=== PATIENT | female | born 1935 | race Caucasian/White ===

== ENCOUNTER 2019-06-19 08:01 | Day surgery (SDC) | payer OTHER ==
[~2019-06-19] VITALS: Ht 154.9 cm; Wt 99.8 kg
--- NOTE | ~2019-06-19 | O ---
[facility] [place] [address] OPERATIVE REPORT Name: NORY JULIEN Room #: 150-6 [facility]..#: [id number] Admission: 06/19/19 Attend Phys: Mike Langley MD Discharge: Date of : 35 Report #: [id number] THIS REPORT FOR: //name// CC: Dr. Lucas Langley DATE OF SERVICE: 06/19/2019 PREOPERATIVE DIAGNOSIS: Tumor of right lower lid, medial canthus and glabella. POSTOPERATIVE DIAGNOSES: Tumor of right lower lid, medial canthus and glabella; basal cell carcinoma with additional pathology. SURGEON: Mike Langley MD. LEAD BASED PAINT TECHNICIAN: None. ANESTHESIA: MAC. COMPLICATIONS: None. INDICATIONS FOR SURGERY: This pleasant 83-year-old woman has a nodular ulcerative lesion in her medial right lower lid extending across her medial canthus and upon to her glabella. The lesion appears to most likely be a basal cell carcinoma. She presents today for excision of this lesion with subsequent repair of that defect after frozen sections have been analyzed. Informed consent was obtained to include but not limited to the potential risk for loss of vision, bleeding, infection, failure to improve the problem, the potential need for further surgery or treatment. DESCRIPTION OF PROCEDURE: The patient was taken to the operating room where 2% Xylocaine with epinephrine mixed with equal parts 0.75% Marcaine with Wydase was administered transcutaneously to the right lower lid, the right medial canthus, the glabella, the medial right upper lid and the right cheek. The patient was subsequently prepped and draped in the usual sterile fashion. A fine tip skin marking pen was then utilized to outline the lesion with approximately 2 mm of margin around all obvious tumor. The incisions were then made with a 15C blade. Relatively brisk bleeding ensued as the lesion was directly overlying the angular artery. The specimen was then oriented on a drawing for the waiting pathologist. As the specimen was taken, the bed tends to open up from cicatrization from the lesion itself. The pathologist snap froze that tissue and found that there was indeed a basal cell carcinoma in the middle of the specimen that appeared to be completely excised, but the periphery of the margin including all the skin and the deep bed was involved with some other squamous [address] [address] OPERATIVE REPORT Name: NORY JULIEN Lisset Room #: 150-6 [facility]..#: [id number] Admission: 06/19/19 Attend Phys: Mike Langley MD Discharge: Date of : 35 Report #: [id number] proliferative process. She was unsure if the process was neoplastic or inflammatory. The decision was made to correct that defect and allow her to look at the tissue under permanent sections. A myocutaneous flap was then developed to correct the superior most portion of the wound. The defect was larger than it initially been anticipated. Hemostasis was re-achieved. The relaxing incision was then advanced and closed as the flap came together over the glabella, interrupted buried Vicryl sutures deep and then 6-0 plain gut sutures superficially. This left the defect over the medial aspect of the right lower lid. It was elected to do a full thickness skin graft for this part of the correction. A fine tip skin marking pen was then utilized to outline the defect in the lateral right upper lid, which was a little over 2 cm in length and a little over 1 cm in height. The incisions were then made in the periphery of this donor area followed by deeper dissection was accomplished with a high-temp cautery. The donor bed was then closed with interrupted buried 6-0 Vicryl sutures and 6-0 plain gut sutures. The full thickness skin graft was then defatted. It was then secured to its bed in the medial aspect of the right lower lid with 7-0 Vicryl sutures for the cardinal closure and then 6-0 plain gut sutures for a final closure. The wound was then cleaned and dressed with erythromycin ophthalmic ointment followed by several layers of Telfa pads, which were held in place with eye pads, silk tape, and Mastisol. The patient was subsequently transported to the recovery area having tolerated the procedure well with no anesthetic or operative complications being noted and the known possibility of potential need for further treatment. Thank you very much. Supportive dictations follow. By: [id number] Mike Langley MD /nt
[~2019-06-19 08:01] MED LIST: ACULAR 0.5% EYE5 ML OPHTHALMIC; ALEVE220 MG PO; AMLODIPINE BESY10 MG PO; CALCIUM MAGNES1 EACH PO; CALCIUM OYS SH1 EACH PO; CENTRUM SILVER1 EAC4 PO; CLINDAMYCIN HC150 MG PO; FISH OIL 1,001000 M2 PO; GLUCOSAMINE HC500 MG PO; PRAVACHOL40 MG PO; PREMARIN0.625 MG PO; PREMPHASE 0.621 EAC1 PO; PROAIR DIGIHAL90 MCG INH; TIMOLOL GL0.5 %/5 M1 OP; TIMOLOL MALEATE5 M2 OPHTHALMIC; TRUSOPT OCUMETE10 ML OPHTHALMIC; TUMS PO; XALATAN2.5 ML OPHTHALMIC; ZESTORETIC 20-1 EACH PO; ZETIA10 MG PO
[2019-06-19 08:48] VITALS: BP 139/68
--- NOTE | 2019-06-23 17:06 | PATH ---
[facility] [place] [address] PATHOLOGY RPT PROCEDURE Name: NORY JULIEN Room #: DEP [facility] M.R.#: [id number] Admission: 06/19/19 Date of : 35 Discharge: 06/19/19 Report #: [id number] Path Case #: [id number] [facility] Accession Number: [id number] . 01 Material submitted: . lid - RIGHT LOWER LID LESION. Modifiers: right, lower . 02 Frozen section diagnosis: . FROZEN SECTION DIAGNOSIS (Dr. Mariza Estevez) . FSA1. Skin, right lower lid lesion, excision: - EXTENSIVE BASAL CELL CARCINOMA PRESENT SURROUNDED BY A SQUAMOPROLIFERATIVE LESION EXTENDING TO ALL MARGINS SAMPLED ON FS SLIDES; CANNOT EXCLUDE NODULOCYSTIC VARIANT OF BCC. . These findings are discussed with Dr. Mike Langley in OR-6 and a written report is placed in the patient's chart. . (IUV:laboratory mechanical technician; 06/19/2019) . . GROSS DESCRIPTION Specimen is received fresh from the OR labeled with the patient's name, and "right lower lid lesion", consists of an oriented ellipse of skin measuring 1.6 x 1 x 0.5 cm. It is oriented as superior medial inferior and lateral by Dr. Langley, these are assigned 12:00, 3:00, 6:00 and 9:00 respectively. At this point, specimen is inked as follows: 12-3-6:00 is inked black, 6-9:00 is inked blue, and 9-12:00 is inked green. The deep margin is mostly inked black. At this point, specimen is serially sectioned and submitted entirely for frozen section as FSA1, this is subsequently submitted for permanent section as A1. (IUV:laboratory mechanical technician; 06/19/2019) . Frozen section performed at [facility], [address] [place] [address] , [place] [address]. IZV/MBR . 02 Diagnosis: Skin, right lower lid lesion, excision: - BASAL CELL CARCINOMA, NODULOCYSTIC VARIANT. - EXTENDS TO ALL MARGINS SAMPLED. (IUV:laboratory mechanical technician; 06/23/2019) MBR 06/23/2019 1455 Local . 02 Comment: Dr. Kathy Sumner, board-certified dermatopathologist has seen this [address] [place] [address] PATHOLOGY RPT PROCEDURE Name: NORY JULIEN Room #: DEP [facility] Michelle#: [id number] Admission: 06/19/19 Date of : 35 Discharge: 06/19/19 Report #: [id number] Path Case #: [id number] case and concurs with my diagnosis rendered. . Findings of this case are discussed with Dr. Mike Langley at approximately 2:25 p.m. on 06/23/19. . (IUV:laboratory mechanical technician; 06/23/2019) . 02 Electronically signed: . Mariza Estevez MD, Pathologist NPI- [id number] . 03 Gross description: . PLEASE SEE FROZEN SECTION FOR GROSS DESCRIPTION. /MBR 06/19/2019 1308 Local . 02 Pathologist provided ICD-10: C44.1122 . 02 CPT . 936726, [id number] Specimen Comment: A courtesy copy of this report has been sent to [phone] Specimen Comment: [phone] Specimen Comment: Report sent to / DR ASTUDILLO Performed at: [address] [facility] [place] [address] [id number] MD Wilfred Crocker MD Phone: [phone] Performed at: [address] [facility] [id number] MD Mariza Estevez MD Phone: [phone] Performed at: [address] [facility] [address] [place] [address] [id number] MD Wilfred Crocker MD Phone: [phone]
== END 2019-06-19 11:00 | disposition home or self-care (01) ==
LOC: OR 08:01 → TBA 08:08 → OR 09:26
DX: C44.1122 Basal cell carcinoma of skin of right lower eyelid, including canthus (principal); C44.319 Basal cell carcinoma of skin of other parts of face; H40.9 Unspecified glaucoma; I10 Essential (primary) hypertension; E78.5 Hyperlipidemia, unspecified; Z98.890 Other specified postprocedural states; Z98.41 Cataract extraction status, right eye; Z90.710 Acquired absence of both cervix and uterus; Z96.653 Presence of artificial knee joint, bilateral; Z79.899 Other long term (current) drug therapy; Z88.0 Allergy status to penicillin; Z88.8 Allergy status to other drugs, medicaments and biological substances
CPT/HCPCS: 50010; 50101; 50386; 50398; 51636; 56531; 62110; 62850; 70005